=== PATIENT | female | born 1990 | race Caucasian/White ===

== ENCOUNTER 2018-07-30 15:57 | Emergency (ER) | payer OTHER ==
[~2018-07-30] VITALS: Ht 165.1 cm; Wt 89.8 kg
[2018-07-30 17:24] LABS: BILIRUBIN NEGATIVE (NEGATIVE); BLOOD TRACE-INTACT (NEGATIVE); CLARITY SL CLOUDY (CLEAR); COLOR YELLOW (YELLOW); GLUCOSE NEGATIVE (NEGATIVE); KETONE TRACE (NEGATIVE); LEUKO ESTERASE NEGATIVE (NEGATIVE); NITRITE NEGATIVE (NEGATIVE); SPECIFIC GRAVITY 1.025 (1.005-1.030); UROBILINOGEN 0.2 E.U./dl (0.2-1.0)
[2018-07-30] MEDS ORDERED: CYCLOBENZAPRINE10 MG PO (17:26)
[2018-07-30] MEDS ORDERED: CHANTIX1 M1 PO (17:26)
[2018-07-30] MEDS ORDERED: NAPROSYN500 MG PO (17:26)
[2018-07-30] MEDS ORDERED: TYLENOL325 M1 PO (17:26)
[2018-07-30 17:36] LABS: BACTERIA 1+; WBC 0-2 wbc/hpf (0-5)
== END 2018-07-30 17:45 | disposition home or self-care (01) ==
LOC: ED 15:57
PROVIDERS: Emergency Medicine
DX: M54.5 Low back pain (principal); F17.200 Nicotine dependence, unspecified, uncomplicated